=== PATIENT | male | born 1965 | race American Indian/Alaskan Native ===

== ENCOUNTER 2018-06-25 09:03 | Emergency (ER) | payer SELFPAY ==
[2018-06-25 09:59] VITALS: BP 158/108
[2018-06-25] MEDS ORDERED: ZOFRAN ODT PO ONE (11:16)
[2018-06-25] MEDS ORDERED: TYLENOL #3 PO ONE (11:16)
--- NOTE | 2018-06-25 11:21 | Emergency Department Report ---
ED General Adult HPI - General Chief complaint: Fall Stated complaint: FELL LEFT ARM/HEAD Time Seen by Provider: 06/25/18 11:11 Source: patient Mode of arrival: Ambulatory Limitations: No Limitations - History of Present Illness Initial comments: Patient presents to the emergency department status post a fall. Patient states he was working in his garage yesterday and fell onto his left shoulder patient states since that time he's had difficulty moving the arm. Patient denies hitting his head or loss of consciousness. Patient's has no other complaints. -: Sudden Location: upper extremity Radiation: non-radiation Severity scale (0 -10): 5 Quality: aching Consistency: constant Improves with: rest Worsens with: movement Associated Symptoms: denies other symptoms Treatments Prior to Arrival: none - Related Data Previous Rx's Medication Instructions Recorded Last Taken Type metFORMIN [Glucophage] 500 mg PO BID #60 tablet 12/19/15 Unknown Rx Acetaminophen/Codeine [Tylenol 1 tab PO Q6H PRN #18 tab 06/25/18 Unknown Rx /Codeine # 3 tab] Prednisone 50 mg PO QDAY #5 tablet 06/25/18 Unknown Rx traMADol [Ultram] 50 mg PO Q6HR PRN #24 tablet 06/25/18 Unknown Rx Allergies Allergy/AdvReac Type Severity Reaction Status Date / Time No Known Allergies Allergy Unverified 12/19/15 11:25 ED Review of Systems ROS: Stated complaint: FELL LEFT ARM/HEAD Other details as noted in HPI Comment: All other systems reviewed and negative Constitutional: denies: chills, fever Eyes: denies: eye pain, eye discharge, vision change ENT: denies: ear pain, throat pain Respiratory: denies: cough, shortness of breath, wheezing Cardiovascular: denies: chest pain, palpitations Endocrine: no symptoms reported Gastrointestinal: denies: abdominal pain, nausea, diarrhea Genitourinary: denies: urgency, dysuria Musculoskeletal: other (left shoulder pain). denies: back pain, joint swelling , arthralgia Skin: denies: rash, lesions Neurological: denies: headache, weakness, paresthesias Psychiatric: denies: anxiety, depression Hematological/Lymphatic: denies: easy bleeding, easy bruising ED Past Medical Hx - Past Medical History Previous Medical History?: Yes Hx Diabetes: Yes - Surgical History Past Surgical History?: No - Social History Smoking Status: Former Smoker Substance Use Type: None - Medications Home Medications: Home Medications Medication Instructions Recorded Confirmed Last Taken Type metFORMIN [Glucophage] 500 mg PO BID #60 tablet 12/19/15 Unknown Rx Acetaminophen/Codeine [Tylenol 1 tab PO Q6H PRN #18 tab 06/25/18 Unknown Rx /Codeine # 3 tab] Prednisone 50 mg PO QDAY #5 tablet 06/25/18 Unknown Rx traMADol [Ultram] 50 mg PO Q6HR PRN #24 tablet 06/25/18 Unknown Rx ED Physical Exam - General Limitations: No Limitations General appearance: alert, in no apparent distress - Head Head exam: Present: atraumatic, normocephalic - Eye Eye exam: Present: normal appearance - ENT ENT exam: Present: mucous membranes moist - Neck Neck exam: Present: normal inspection - Respiratory Respiratory exam: Present: normal lung sounds bilaterally. Absent: respiratory distress - Cardiovascular Cardiovascular Exam: Present: regular rate, normal rhythm. Absent: systolic murmur, diastolic murmur, rubs, gallop - GI/Abdominal GI/Abdominal exam: Present: soft, normal bowel sounds - Rectal Rectal exam: Present: deferred - Extremities Exam Extremities exam: Present: other (patient has tenderness palpation of the left deltoid with limited range of motion secondary to pain) - Back Exam Back exam: Present: normal inspection - Neurological Exam Neurological exam: Present: alert, oriented X3 - Psychiatric Psychiatric exam: Present: normal affect, normal mood - Skin Skin exam: Present: warm, dry, intact, normal color. Absent: rash ED Course Vital Signs 06/25/18 09:54 Temperature 97.6 F Pulse Rate 77 Respiratory 20 Rate Blood Pressure 158/108 O2 Sat by Pulse 100 Oximetry ED Medical Decision Making - Medical Decision Making Patient politely declined imaging and states he would rather be treated medically Critical care attestation.: If time is entered above; I have spent that time in minutes in the direct care of this critically ill patient, excluding procedure time. ED Disposition Clinical Impression: Shoulder injury Disposition: DC-01 TO HOME OR SELFCARE Is pt being admited?: No Does the pt Need Aspirin: No Condition: Stable Instructions: Shoulder Sprain (ED) Additional Instructions: return if worse Prescriptions: Acetaminophen/Codeine [Tylenol /Codeine # 3 tab] 1 tab PO Q6H PRN #18 tab PRN Reason: Pain, Chest/Cardiac Prednisone 50 mg PO QDAY #5 tablet traMADol [Ultram] 50 mg PO Q6HR PRN #24 tablet PRN Reason: Pain Referrals: PRIMARY CAREMD [Primary Care Provider] - 3-5 Days BETO VELA MD [Staff Physician] - 3-5 Days [facility] [Outside] - 3-5 Days Forms: Work/School Release Form(ED) Time of Disposition: 11:19
== END 2018-06-25 11:44 | disposition home or self-care (01) ==
LOC: ED 09:03
DX: T14.90XA Injury, unspecified, initial encounter (principal); E11.9 Type 2 diabetes mellitus without complications; Z87.891 Personal history of nicotine dependence; Z79.899 Other long term (current) drug therapy; W19.XXXA Unspecified fall, initial encounter; Y93.89 Activity, other specified; Y99.0 Civilian activity done for income or pay; Y92.59 Other trade areas as the place of occurrence of the external cause
CPT/HCPCS: 93005; 93010; 99282; Q0162

== ENCOUNTER 2018-07-11 09:29 | Emergency (ER) | payer SELFPAY ==
[2018-07-11] MEDS ORDERED: ULTRAM PO ONE (10:18)
[2018-07-11] MEDS ORDERED: MOTRIN PO ONE (10:18)
--- NOTE | 2018-07-11 10:18 | Emergency Department Report ---
ED ENT HPI - General Chief complaint: Dental/Oral Stated complaint: TOOTH/GUM INFECTION Time Seen by Provider: 07/11/18 10:11 Source: patient Mode of arrival: Ambulatory Limitations: No Limitations - History of Present Illness Initial comments: Patient is a 52-year-old male who has pain near to 30-31. Patient has some issues with these teeth for quite some time of the pain is gotten worse over the last week. Patient startedswelling to the right jaw. Patient states there is no difficulty swallowing no fever nausea vomiting. Patient states pain is 8 out of 10 in severity. - Related Data Previous Rx's Medication Instructions Recorded Last Taken Type metFORMIN [Glucophage] 500 mg PO BID #60 tablet 12/19/15 Unknown Rx Acetaminophen/Codeine [Tylenol 1 tab PO Q6H PRN #18 tab 06/25/18 Unknown Rx /Codeine # 3 tab] predniSONE [Prednisone] 50 mg PO QDAY #5 tablet 06/25/18 Unknown Rx traMADol [Ultram] 50 mg PO Q6HR PRN #24 tablet 06/25/18 Unknown Rx Clindamycin [Clindamycin CAP] 300 mg PO Q8H 7 Days cap 07/11/18 Unknown Rx Ibuprofen [Motrin] 800 mg PO Q8HR PRN #20 tablet 07/11/18 Unknown Rx traMADol [Ultram] 50 mg PO Q6HR PRN #12 tablet 07/11/18 Unknown Rx Allergies Allergy/AdvReac Type Severity Reaction Status Date / Time No Known Allergies Allergy Unverified 12/19/15 11:25 ED Dental HPI - General Chief complaint: Dental/Oral Stated complaint: TOOTH/GUM INFECTION Time Seen by Provider: 07/11/18 10:11 Source: patient Mode of arrival: Ambulatory Limitations: No Limitations - Related Data Previous Rx's Medication Instructions Recorded Last Taken Type metFORMIN [Glucophage] 500 mg PO BID #60 tablet 12/19/15 Unknown Rx Acetaminophen/Codeine [Tylenol 1 tab PO Q6H PRN #18 tab 06/25/18 Unknown Rx /Codeine # 3 tab] predniSONE [Prednisone] 50 mg PO QDAY #5 tablet 06/25/18 Unknown Rx traMADol [Ultram] 50 mg PO Q6HR PRN #24 tablet 06/25/18 Unknown Rx Clindamycin [Clindamycin CAP] 300 mg PO Q8H 7 Days cap 07/11/18 Unknown Rx Ibuprofen [Motrin] 800 mg PO Q8HR PRN #20 tablet 07/11/18 Unknown Rx traMADol [Ultram] 50 mg PO Q6HR PRN #12 tablet 07/11/18 Unknown Rx Allergies Allergy/AdvReac Type Severity Reaction Status Date / Time No Known Allergies Allergy Unverified 12/19/15 11:25 ED Review of Systems ROS: Stated complaint: TOOTH/GUM INFECTION Other details as noted in HPI Comment: All other systems reviewed and negative ED Past Medical Hx - Past Medical History Previous Medical History?: Yes Hx Diabetes: Yes - Surgical History Past Surgical History?: No - Social History Smoking Status: Never Smoker Substance Use Type: None - Medications Home Medications: Home Medications Medication Instructions Recorded Confirmed Last Taken Type metFORMIN [Glucophage] 500 mg PO BID #60 tablet 12/19/15 Unknown Rx Acetaminophen/Codeine [Tylenol 1 tab PO Q6H PRN #18 tab 06/25/18 Unknown Rx /Codeine # 3 tab] predniSONE [Prednisone] 50 mg PO QDAY #5 tablet 06/25/18 Unknown Rx traMADol [Ultram] 50 mg PO Q6HR PRN #24 tablet 06/25/18 Unknown Rx Clindamycin [Clindamycin CAP] 300 mg PO Q8H 7 Days cap 07/11/18 Unknown Rx Ibuprofen [Motrin] 800 mg PO Q8HR PRN #20 tablet 07/11/18 Unknown Rx traMADol [Ultram] 50 mg PO Q6HR PRN #12 tablet 07/11/18 Unknown Rx ED Physical Exam - General Limitations: No Limitations General appearance: alert, in no apparent distress - Head Head exam: Present: atraumatic, normocephalic - Eye Eye exam: Present: normal appearance - ENT ENT exam: Present: mucous membranes moist, other (patient's of 232 and 31 are worn down to the gumline. There is some localized swelling to the gums. Overlying jaw does show some swelling and induration.) - Neck Neck exam: Present: normal inspection - Respiratory Respiratory exam: Present: normal lung sounds bilaterally. Absent: respiratory distress - Cardiovascular Cardiovascular Exam: Present: regular rate, normal rhythm. Absent: systolic murmur, diastolic murmur, rubs, gallop - GI/Abdominal GI/Abdominal exam: Present: soft, normal bowel sounds - Rectal Rectal exam: Present: deferred - Extremities Exam Extremities exam: Present: normal inspection - Back Exam Back exam: Present: normal inspection - Neurological Exam Neurological exam: Present: alert, oriented X3 - Psychiatric Psychiatric exam: Present: normal affect, normal mood - Skin Skin exam: Present: warm, dry, intact, normal color. Absent: rash ED Course Vital Signs 07/11/18 09:35 Temperature 97.8 F Pulse Rate 83 Respiratory 18 Rate Blood Pressure 152/98 O2 Sat by Pulse 99 Oximetry ED Medical Decision Making - Medical Decision Making Patient be started on antibiotics and will be discharged home with follow-up with dentist. Critical care attestation.: If time is entered above; I have spent that time in minutes in the direct care of this critically ill patient, excluding procedure time. ED Disposition Clinical Impression: Dental abscess, Facial cellulitis Disposition: TO HOME OR SELFCARE Is pt being admited?: No Does the pt Need Aspirin: No Condition: Stable Instructions: Dental Abscess (ED) Time of Disposition: 10:18
[2018-07-11] MEDS ORDERED: CLEOCIN PO ONE (10:19)
[2018-07-11 11:24] VITALS: BP 128/72
== END 2018-07-11 11:22 | disposition home or self-care (01) ==
LOC: ED 09:29
DX: K04.7 Periapical abscess without sinus (principal); L03.211 Cellulitis of face; E11.9 Type 2 diabetes mellitus without complications; Z79.84 Long term (current) use of oral hypoglycemic drugs
CPT/HCPCS: 99282